=== PATIENT | male | born 1960 | race Caucasian/White ===

== ENCOUNTER → 2020-06-11 | Outpatient (CLI) | payer BC ==
--- NOTE | 2020-06-13 12:47 | P.ARTDOP ---
Arterial Doppler LOWER EXTREMITY ARTERIAL DOPPLER: DATE OF SERVICE: 06/11/2020 Reason for study: Calf claudication. Doppler waveforms: Multiphasic throughout on the left and at the femoral on the right. Atypical below. Poor digital waveforms. Digital waveforms on the left are good. Pulse volume recording: []. Pressure gradients: Above the low thigh on the right and below the knee. None on the left. Ankle-brachial indices: 0.46 on the right and greater than 1 on the left.. Toe brachial indices: 0.49 on the right, 0.79 on the left Impression: The left is normal. At least moderate right fem-pop disease. Vascular surgical consult recommended..
== END | disposition home or self-care (01) ==
LOC: RADUSWWP 11:58
PROVIDERS: ATTEND Family Medicine
DX: I73.9 Peripheral vascular disease, unspecified (principal)
CPT/HCPCS: 93923

== ENCOUNTER → 2020-07-18 | Day surgery (SDC) | payer BC ==
[2020-07-16 11:42] VITALS: BMI 25.6
[~2020-07-18] MED LIST: ALPRAZolam 0.25 MG TAB PO PRN; ASPIRIN 325 MG TAB PO STA; IOPAMIDOL-250 100ML BTL INTRAARTER ONE; IV FLUID CONTINUATION 900 ML IV ONE; LIDOCAINE 1% INJ 10MG/ML (20 ML MDV) SQ ONE; MIDAZOLAM 2 MG/2 ML VIAL IVP ONE; SODIUM CHLORIDE 0.9% 1,000 ML in EMPTY BAG 1 BAG IV ONE
[2020-07-18 12:17] VITALS: RESP 16; TEMP 97.6
[2020-07-18 12:25] LABS: Glucose,Whole Blood 116 mg/dL (75-99)
[2020-07-18 12:30] LABS: Basophils # (A) 0.1 k/uL (0-0.2); Basophils % (A) 1 %; Eosinophils # (A) 0.3 k/uL (0-0.7); Eosinophils % (A) 4 %; HCT 49.7 % (39.0-53.0); HGB 16.7 gm/dL (13.0-17.5); Lymphocytes # (A) 2.4 k/uL (1.0-4.8); Lymphocytes % (A) 32 %; MCH 31.2 pg (25.0-35.0); MCHC 33.7 g/dL (31.0-37.0); MCV 92.7 fL (80.0-100.0); Mean Platelet Volume 7.2; Monocytes # (A) 0.5 k/uL (0-1.0); Monocytes % (A) 6 %; Neutrophils # (A) 4.2 k/uL (1.3-7.7); Neutrophils % (A) 56 %; Platelet Count 202 k/uL (150-450); RBC 5.36 m/uL (4.30-5.90); RDW 13.3 % (11.5-15.5); WBC 7.5 k/uL (3.8-10.6)
[2020-07-18 12:41] LABS: African American GFR (CKD) >90 (>60 ml/min/1.73 sqM); Anion Gap 5 mmol/L; Blood Urea Nitrogen 16 mg/dL (9-20); Calcium 9.5 mg/dL (8.4-10.2); Carbon Dioxide 29 mmol/L (22-30); Chloride 104 mmol/L (98-107); Glucose 128 mg/dL (74-99); Non-African American GFR(CKD) >90 (>60 ml/min/1.73 sqM); Potassium 4.8 mmol/L (3.5-5.1); Sodium 138 mmol/L (137-145)
--- NOTE | 2020-07-18 13:45 | P.OP ---
Date of Procedure: 07/18/20 Description of Procedure: Preoperative diagnosis: Ivania 3 peripheral arterial disease right lower extremity Postoperative diagnosis: Same Procedure: [#1 ultrasound guided left common femoral artery access #2 aortogram with bilateral lower extremity runoffs #3 18 minutes moderate conscious sedation] Surgeon: Jaquelin Sotelo D.O. EBL: [Less than 10 mL] IV fluids: [See records] Urine output: [See records] Drains: [None] Complications: [None immediately apparent] Condition: [Stable to recovery] Operative indication and findings: [The patient is a 59-year-old male who in the past few months been having increasing issues with claudication of his right lower extremity not being able to walk as he had previously. He had arterial Dopplers revealing an RUDOLPH on the right of 0.49 therefore recommended he undergo imaging via a catheter directed angiogram risks and benefits were discussed. He seemingly understood and was willing to proceed.] Procedure in detail: []The patient was taken to the special suite and placed in supine position. The bilateral groins were prepped and draped in usual sterile fashion. A preprocedure timeout was performed, all parties are in agreement. The ultrasound utilized and the left common femoral artery was identified. The skin overlying was anesthetized 1% lidocaine plain. The common femoral artery was cannulated on first attempt and Seldinger technique was used to place a 5- Mohawk sheath. Catheters wires at least placed Omni Flush catheter in the abdo lucho aorta an angiogram was performed. The catheters and brought down the level of bifurcation and bilateral lower extremity runoffs were performed. Catheters and wires were removed. Sheath was removed and manual pressure was held until hemostasis was adequate. The patient was transferred back to recovery in stable condition having tolerated procedure well. Angiographic findings the aorta is normal in course and caliber. Patient appears to have a patent celiac artery with a visualized splenic artery. The SMA appears patent. The bilateral renals appear patent, does appear there is an accessory right renal artery. The lateral common iliacs are patent without evidence of significant disease. The external and internal iliacs are patent without evidence of significant disease. On the right the common and deep femoral arteries are patent without significant disease, the superficial femoral artery is patent to the level of the abductor canal with there is a large collateral and abrupt occlusion. There is reconstitution at the above-knee popliteal artery. There is a high takeoff of the anterior tibial artery along TP trunk. There are 3 vessels down the leg. On the left the common, deep and superficial femoral arteries are widely patent without evidence of significant disease. There is some calcific disease of the distal superficial femoral artery without any significant areas of stenosis. There is three-vessel runoff with a normal anterior tibial artery takeoff on the left lower extremity. Plan - Discharge Summary Discharge Rx Participant: No New Discharge Prescriptions: No Action metFORMIN HCL 1,000 mg PO BID Cinnamon Bark [Cinnamon] 500 mg PO DAILY Aspirin 324 mg PO ONETIME Discharge Medication List Cinnamon Bark [Cinnamon] 500 mg PO DAILY 07/16/20 [History] metFORMIN HCL 1,000 mg PO BID 07/16/20 [History] Aspirin 324 mg PO ONETIME 07/18/20 [History] Follow up Appointment(s)/Referral(s): Jaquelin Sotelo DO [STAFF PHYSICIAN] - 1 Week Activity/Diet/Wound Care/Special Instructions: Resume regular activities starting tomorrow. No heavy lifting. May shower. Discharge Disposition: HOME SELF-CARE
--- NOTE | 2020-07-18 17:11 | IR ---
Fluoroscopy HISTORY: Pain in right leg 1.9 minutes fluoroscopy time supplied to the referring clinician. 77 intraoperative C-arm images doc ument the procedure. See dictated report from vascular surgery.
[2020-07-18 17:14] VITALS: BP 132/63; PULSE 59
== END | disposition home or self-care (01) ==
LOC: CATHCVL 11:40
PROVIDERS: ATTEND Surgery
DX: E11.51 Type 2 diabetes mellitus with diabetic peripheral angiopathy without gangrene (principal); I70.211 Atherosclerosis of native arteries of extremities with intermittent claudication, right leg; F17.200 Nicotine dependence, unspecified, uncomplicated; Z79.84 Long term (current) use of oral hypoglycemic drugs; Z79.82 Long term (current) use of aspirin
CPT/HCPCS: 36200; 75625; 75716; 76937; 80048; 85025; C1769 ×3; C1894 ×2; J2250; J2001; Q9966

== ENCOUNTER 2020-08-01 11:48 | Day surgery (SDC) | payer BC ==
[2020-07-30 16:02] VITALS: BMI 25.4
[~2020-08-01 11:48] MED LIST changes: -IOPAMIDOL-250 100ML BTL INTRAARTER ONE; -IV FLUID CONTINUATION 900 ML IV ONE; -LIDOCAINE 1% INJ 10MG/ML (20 ML MDV) SQ ONE; -MIDAZOLAM 2 MG/2 ML VIAL IVP ONE
[2020-08-01 12:06] LABS: Glucose,Whole Blood 118 mg/dL (75-99)
[2020-08-01] MEDS ORDERED: SODIUM CHLORIDE 0.9% 1,000 ML IV ONE (13:15)
[2020-08-01 13:37] LABS: Glucose,Whole Blood 115 mg/dL (75-99)
[2020-08-01 14:15] LABS: African American GFR (CKD) >90 (>60 ml/min/1.73 sqM); Anion Gap 4 mmol/L; Blood Urea Nitrogen 16 mg/dL (9-20); Calcium 9.1 mg/dL (8.4-10.2); Carbon Dioxide 30 mmol/L (22-30); Chloride 103 mmol/L (98-107); Glucose 117 mg/dL (74-99); Non-African American GFR(CKD) >90 (>60 ml/min/1.73 sqM); Potassium 4.6 mmol/L (3.5-5.1); Sodium 137 mmol/L (137-145)
[2020-08-01] MEDS ORDERED: MIDAZOLAM 2 MG/2 ML VIAL IVP ONE (14:47)
[2020-08-01] MEDS ORDERED: fentaNYL (PF) 50 MCG/ML 2 ML AMP IV ONE (14:47)
[2020-08-01] MEDS ORDERED: LIDOCAINE 1% INJ 10MG/ML (20 ML MDV) SQ ONE (14:48)
[2020-08-01] MEDS ORDERED: HEPARIN SODIUM 1,000 UN/ML (10ML VL) IV ONE (14:51)
[2020-08-01 14:54] LABS: Basophils % (A) 0 %; Eosinophils # (A) 0.4 k/uL (0-0.7); Eosinophils % (A) 5 %; HCT 47.3 % (39.0-53.0); HGB 15.8 gm/dL (13.0-17.5); Lymphocytes # (A) 2.7 k/uL (1.0-4.8); Lymphocytes % (A) 31 %; MCHC 33.3 g/dL (31.0-37.0); MCV 90.1 fL (80.0-100.0); Mean Platelet Volume 7.3; Monocytes # (A) 0.5 k/uL (0-1.0); Monocytes % (A) 6 %; Neutrophils % (A) 57 %; Platelet Count 190 k/uL (150-450); RBC 5.26 m/uL (4.30-5.90); RDW 13.5 % (11.5-15.5); WBC 8.8 k/uL (3.8-10.6)
[2020-08-01] MEDS ORDERED: IOPAMIDOL-250 100ML BTL INTRAARTER ONE (15:34)
[2020-08-01] MEDS ORDERED: CLOPIDOGREL 75 MG TAB PO ONE (15:40)
--- NOTE | 2020-08-01 15:55 | P.OP ---
Date of Procedure: 08/01/20 Description of Procedure: Preoperative diagnosis: Right superficial femoral artery occlusive disease, [place] 3 peripheral arterial disease Postoperative diagnosis: Same Procedure: [#1 ultrasound guided left common femoral artery access #2 selective right lower extremity angiogram to popliteal 3. Superficial femoral artery atherectomy with Hawk M 4. Percutaneous transluminal balloon angioplasty 5 x 1 20, 6 x 120 drug-coated balloon] Surgeon: Jaquelin Sotelo D.O. EBL: [Less than 10 mL] IV fluids: [See records] Urine output: [None] Drains: [None] Complications: [None immediately apparent] Condition: [Stable to recovery] Operative indication and findings: [The patient is a 59-year-old male who has had new onset of pain in his right lower extremity. He previously underwent an angiogram revealing superficial femoral artery occlusion. He presents today for atherectomy and angioplasty. Risks and benefits were discussed receiving Lantus and was willing to proceed as such] Procedure in detail: [The patient was taken to the special suite and placed in supine position. The bilateral groins are prepped and draped in usual sterile fashion the ultrasound was utilized and the left common femoral artery was identified. Skin overlying was necessary for percent lidocaine plain and the needle was accessed. Seldinger technique was used and a 6-Burund[place] sheath was placed. Catheters and wires were utilized access the right iliac. Iliofemoral angiogram was performed. The glide advantage wire was placed down into the superficial femoral artery prior to the occlusion. The sheath was then replaced with a long 6-Burundian sheath. The wire was then utilized to cross the occlusion with a crossing catheter. A distal angiogram was performed in the above-knee popliteal artery with three-vessel runoff confirming the high vessel anterior tibial artery takeoff. A 6 spider was placed above the bifurcation and Hawk M was utilized to atherectomized the occlusion. Following that a 5 x 1 20 balloon was placed for sizing as well as angioplasty. Distally the vessel did appear more close to a size of the 6 therefore a 6 x 1 20 drug-coated balloon was placed and left in place for 3 minutes. The balloon was removed and an angiogram was performed revealing significant improvement. The crossing catheter was placed and the spider distal embolic protection device was removed. The final images taken and down leg there maintained 3 vessels to the ankle. The sheath was then removed over a wire. The wire was removed. The sheath was removed and pressure was held until hemostasis was adequate. Patient tolerated the procedure well.] Plan - Discharge Summary Discharge Rx Participant: No New Discharge Prescriptions: No Action metFORMIN HCL 1,000 mg PO BID Cinnamon Bark [Cinnamon] 500 mg PO DAILY Aspirin 325 mg PO ONETIME Discharge Medication List Cinnamon Bark [Cinnamon] 500 mg PO DAILY 07/16/20 [History] metFORMIN HCL 1,000 mg PO BID 07/16/20 [History] Aspirin 325 mg PO ONETIME 07/18/20 [History] Follow up Appointment(s)/Referral(s): Jaquelin Sotelo DO [STAFF PHYSICIAN] - 08/08/20 9:00 am () Patient Instructions/Handouts: Peripheral Vascular Angioplasty (DC) Discharge Disposition: HOME SELF-CARE
[2020-08-01] MEDS: SODIUM CHLORIDE 0.9% 1,000 ML in EMPTY BAG 1 BAG IV SCH (16:31)
[2020-08-01 17:01] LABS: Glucose,Whole Blood 98 mg/dL (75-99)
[2020-08-01] MEDS: INSULIN ASPART (NovoLOG) 100 UNIT/ML VIAL SQ SCH ×2 (18:01→20:28)
[2020-08-01 20:29] LABS: Glucose,Whole Blood 141 mg/dL (75-99)
--- NOTE | 2020-08-01 23:47 | CONS ---
CONSULTATION DATE OF SERVICE: 08/01/2020 REASON FOR CONSULTATION: Advice regarding diabetes mellitus and other medical issues, requested by Dr. Sotelo. HISTORY OF PRESENT ILLNESS: This 59-year-old gentleman with a past medical history of diabetes mellitus, hyperlipidemia, history of varicose veins, being followed by Dr. Cortez in the outpatient setting underwent selective right lower extremity angiogram and superficial femoral artery arthrectomy, a PTBA by Dr. Sotelo. The patient tolerated the procedure. Patient admitted for further evaluation and treatment. There is no history of fever, rigors. No history of headache, loss of consciousness or seizures. Blood sugars have been 115, 117 and 98. PAST MEDICAL HISTORY: Diabetes mellitus type 2, history of hyperlipidemia, history of varicose veins, peripheral vascular disease. MEDICATIONS: Metformin, cinnamon and aspirin. The doses are noted. ALLERGIES: None. FAMILY HISTORY: No history of heart disease or strokes in the family. SOCIAL HISTORY: Smoking on and off, vaping. Otherwise no history of alcohol intake. REVIEW OF SYSTEMS: ENT: No diminished hearing or diminished vision. CARDIOVASCULAR SYSTEM: No angina. RESPIRATORY SYSTEM: No cough or hemoptysis. GI: No nausea, vomiting, diarrhea. : No dysuria. NERVOUS SYSTEM: No numbness or weakness. ALLERGY/IMMUNOLOGY: No asthma or hayfever. MUSCULOSKELETAL: As mentioned earlier. HEMATOLOGY: No history of anemia. ENDOCRINE: History of diabetes mellitus. No hypothyroidism. CONSTITUTIONAL: As mentioned earlier. DERMATOLOGY: Negative. RHEUMATOLOGY: Negative. PSYCHIATRY: As mentioned earlier. PHYSICAL EXAMINATION: The patient is alert and oriented x3. Pulse 61, blood pressure 130/70, respiration 16, temperature normal, pulse ox 90% on room air. HEENT: Conjunctivae normal. NECK: No jugular venous distention. CARDIOVASCULAR: S1, S2 muffled. RESPIRATORY: Breath sounds diminished at the bases. A few scattered rhonchi and crackles. ABDOMEN: Soft, nontender. No mass palpable. LEGS: Status post SFA atherectomy on the right. NERVOUS SYSTEM: Higher function as mentioned earlier. Moves all 4 limbs. No focal motor or sensory deficits. LYMPHATICS: No lymphadenopathy of the neck, axillae or groin. SKIN: No ulcer, rash or bleeding. JOINTS: No active deforming arthropathy. LABS: CBC within normal limits. Glucose 117. ASSESSMENT: 1. Peripheral vascular disease, status post superficial femoral arthrectomy and as well as PTBA on the right. 2. Diabetes mellitus type 2. 3. Hyperlipidemia. 4. History of varicose veins. 5. History of nicotine dependence. 6. FULL CODE. RECOMMENDATIONS AND DISCUSSION: This 59-year-old gentleman who presented with multiple medical problems, we will monitor the patient closely, continue the current medications, continue symptomatic treatment. Will initiate home medications and antiplatelet agents. Monitor blood sugars closely. Otherwise, the patient may be asked to follow up with primary physician in the outpatient setting. Thank you Dr. Sotelo for letting us participate in the care of this patient. MMODL / IJN: [id number] /
[2020-08-02 06:29] LABS: Glucose,Whole Blood 138 mg/dL (75-99)
[2020-08-02] MEDS: SODIUM CHLORIDE 0.9% 1,000 ML in EMPTY BAG 1 BAG IV SCH (06:32)
[2020-08-02] MEDS: INSULIN ASPART (NovoLOG) 100 UNIT/ML VIAL SQ SCH (06:33)
--- NOTE | 2020-08-02 08:37 | P.DS ---
Providers Date of admission: 08/01/2020 Expected date of discharge: 08/02/20 Attending physician: Jaquelin Sotelo DO Consults: 08/01/20 15:57 Consult Physician Routine Consulting Provider: Eunice Cortez Consult Reason/Comments: DM, med management Do you want consulting provider notified?: Yes 08/01/20 17:07 Consult Physician Routine Consulting Provider: Analia Hill Consult Reason/Comments: Medical management, DM Do you want consulting provider notified?: Yes Primary care physician: Eunice Cortez [place] [facility] Course: A 51-year-old male patient with Dr. Sotelo who came in yesterday and underwent a scheduled outpatient angiogram and superficial femoral artery arthrectomy with balloon angioplasty superficial femoral artery occlusive disease, [place] 3 peripheral arterial disease. He is status postop day #1. He is without any current complaints. He denies any bleeding from the access site. He is able to move bilateral lower extremities. He had no acute changes through the night. He denies any shortness of breath, chest pain, abdominal pain, fevers or chills. He tolerated a regular diet this morning. He is voiding without difficulty. Assessment: Exam: General appearance: The patient is alert, oriented, in no acute distress. HET: Head is normocephalic and atraumatic. Neck: Supple without lymphadenopathy. Trachea midline. Heart: S1 S2. Regular rate and rhythm. Lungs: No crackles or wheezes are heard. Abdomen: Soft, nontender, nondistended. Extremities: Normal skin color and turgor. No cyanosis, rash, ulceration, clubbing, or edema. Palpable bilateral femoral pulses, palpable bilateral dorsalis pedis pulses. Bilateral lower extremities warm to touch with good capillary refill. Patient is able to move bilateral lower extremities without any difficulty or pain. Left groin access site without any drainage. No redness, hematoma, or bruising noted. Neurological: No focal deficits. Strength and sensation are grossly intact. Assessment: 1. Postop day #1 for a right lower extremity angiogram with a superficial femoral artery atherectomy with balloon angioplasty 2. Right superficial femoral artery occlusive disease 3. Ivania 3 peripheral arterial disease The above dictated assessment and findings were discussed with Dr. Sotelo. The impression and plan of care have been directed as dictated. Procedures: Right lower extremity angiogram Superficial femoral artery atherectomy with balloon angioplasty Patient Condition at Discharge: Good Plan - Discharge Summary Discharge Rx Participant: No New Discharge Prescriptions: New Atorvastatin [Lipitor] 40 mg PO HS 90 Days #90 tab Clopidogrel [Plavix] 75 mg PO DAILY 90 Days #90 tab Continue metFORMIN HCL 1,000 mg PO BID Cinnamon Bark [Cinnamon] 500 mg PO DAILY Aspirin 325 mg PO ONETIME Discharge Medication List Cinnamon Bark [Cinnamon] 500 mg PO DAILY 07/16/20 [History] metFORMIN HCL 1,000 mg PO BID 07/16/20 [History] Aspirin 325 mg PO ONETIME 07/18/20 [History] Atorvastatin [Lipitor] 40 mg PO HS 90 Days #90 tab 08/02/20 [Rx] Clopidogrel [Plavix] 75 mg PO DAILY 90 Days #90 tab 08/02/20 [Rx] Follow up Appointment(s)/Referral(s): Jaquelin Sotelo DO [STAFF PHYSICIAN] - 08/08/20 9:00 am () Patient Instructions/Handouts: Peripheral Vascular Angioplasty (DC) Activity/Diet/Wound Care/Special Instructions: No heavy lifting or strenuous activity until after follow-up with Dr. Sotelo. May shower however no tub bathing. Patient will be starting on Plavix and a atorvastatin. Patient directed on use of medication. Large left groin for signs of infection, including redness, bleeding, or drainage. Call office with any of the above symptoms as well as fever greater than 100.4. Discharge Disposition: HOME SELF-CARE
[2020-08-02] MEDS ORDERED: CLOPIDOGREL 75 MG TAB PO SCH (09:00)
[2020-08-02] MEDS ORDERED: ATORVASTATIN 40 MG TAB PO SCH (09:00)
[2020-08-02 09:14] VITALS: BP 142/73; PULSE 63; RESP 16; TEMP 98.3
--- NOTE | 2020-08-02 09:23 | IR ---
Fluoroscopy HISTORY: Peripheral vascular occlusive disease 9.2 minutes fluoroscopy time supplied to the referring clinician. 314 intraoperative C-arm images do cument the procedure. See dictated report from vascular surgery.
--- NOTE | 2020-08-02 11:11 | P.PN ---
Subjective Progress Note Date: 08/02/20 This is a 59-year-old male who was recently admitted under Dr. Sotelo and underwent right lower extremity angiogram and superficial femoral artery arthrectomy with balloon angioplasty and is being closely monitored. Medical consultation regarding diabetes mellitus and other medical issues. Following closely along with vascular surgery. Patient was maintained on sliding scale and home medications have been resumed. Blood sugars well controlled and not requiring insulin. Patient will continue with current medication regimen in the outpatient setting. Currently no reports of chest pain, shortness of breath, or palpitations. No active bleeding noted. Patient is scheduled to be discharged this morning and is anxious about going home. Patient has a scheduled follow-up appointment with Dr. Sotelo next week. Patient will continue on his Plavix. No nausea or vomiting reported and patient has tolerated diet. Objective - Vital Signs Vital signs: Vital Signs Temp 98.3 F 08/02/20 08:34 Pulse 63 08/02/20 09:00 Resp 16 08/02/20 09:00 BP 142/73 08/02/20 08:34 Pulse Ox 98 08/02/20 08:34 Intake & Output 08/01/20 08/02/20 08/02/20 18:59 06:59 18:59 Intake Total 150 240 300 Balance 150 240 300 Weight 90 kg Intake: IV 150 Oral 240 300 Other: Voiding Method Toilet Toilet # Voids 2 2 - Exam Gen: This is a 59-year-old male awake, alert and oriented 3, well-developed, well-nourished. Temp is 98.3F, pulse is 63, respirations are 16, blood pressure is 142/73, oxygen saturation is 98% on room air. HEENT: Head is atraumatic, normocephalic. Pupils equal, round. Sclerae is anicteric. NECK: Supple. No JVD. No lymphadenopathy. No thyromegaly. LUNGS: Breath sounds diminished at the bases with no wheezing or rhonchi noted. No intercostal retractions. HEART: S1, S2 muffled ABDOMEN: Soft. Bowel sounds are present. No masses. No tenderness. EXTREMITIES: No pedal edema. No calf tenderness. Status post SFA atherectomy on the right, no active bleeding noted NEUROLOGICAL: Patient is awake, alert and oriented x3. Cranial nerves 2 through 12 are grossly intact. - Labs CBC & Chem 7: 08/01/20 14:30 08/01/20 13:47 Labs: Abnormal Lab Results - Last 24 Hours (Table) 08/01/20 08/01/20 08/01/20 Range/Units 12:05 13:27 13:47 Glucose 117 H (74-99) mg/dL POC Glucose (mg/dL) 118 H 115 H (75-99) mg/dL 08/01/20 08/02/20 Range/Units 20:28 06:28 Glucose (74-99) mg/dL POC Glucose (mg/dL) 141 H 138 H (75-99) mg/dL Assessment and Plan Assessment: Peripheral vascular disease, status post superficial femoral arthrectomy as well as PTBA on the right Diabetes mellitus type 2 Hyperlipidemia History of varicose veins History of nicotine dependence Full code Recommendations and discussion: Recommend to continue with current medications, management, and symptomatic treatment. Continue with home medications and patient will continue on Plavix. Patient instructed to continue monitoring blood sugars and keep a diary for primary care follow-up. Patient has a scheduled appointment with Dr. Sotelo next week for follow-up and patient is being discharged today. Will continue to follow along during hospitalization.
== END 2020-08-02 10:30 | disposition home or self-care (01) ==
LOC: CATHCVL 11:48 → 1SOBS 15:42 → CATHCVL 08-02 10:30
PROVIDERS: ATTEND Surgery
DX: E11.51 Type 2 diabetes mellitus with diabetic peripheral angiopathy without gangrene (principal); I70.211 Atherosclerosis of native arteries of extremities with intermittent claudication, right leg; F17.200 Nicotine dependence, unspecified, uncomplicated; E78.5 Hyperlipidemia, unspecified; I83.90 Asymptomatic varicose veins of unspecified lower extremity; Z79.84 Long term (current) use of oral hypoglycemic drugs; Z79.82 Long term (current) use of aspirin
CPT/HCPCS: 37225; 80048; 85025; 83036; C1894 ×2; C1769 ×3; C1887; C1725; C1714; C1884; C2623; J2250; J2001; J3010; J1644; Q9966

== ENCOUNTER → 2020-12-03 | Outpatient (CLI) | payer BC ==
--- NOTE | 2020-12-03 13:49 | US ---
EXAMINATION TYPE: US carotid duplex BILAT DATE OF EXAM: 12/03/2020 COMPARISON: NONE CLINICAL HISTORY: 60-year-old male F17.210 Nicotine dependence, cigarettes, uncomplicated. No HTN. TECHNIQUE: Carotid duplex ultrasound examination. Indirect Doppler criteria was utilized. FINDINGS: EXAM MEASUREMENTS: RIGHT: Peak Systolic Velocity (PSV) cm/sec ----- Right CCA: 102.6 ----- Right ICA: 87.8 ----- Right ECA: 172.6 ICA/CCA ratio: 0.9 RIGHT: End Diastole cm/sec ----- Right CCA: 18.3 ----- Right ICA: 17.5 ----- Right ECA: 32.7 LEFT: Peak Systolic Velocity (PSV) cm/sec ----- Left CCA: 93.4 ----- Left ICA: 96.4 ----- Left ECA: 155.4 ICA/CCA ratio: 1.0 LEFT: End Diastole cm/sec ----- Left CCA: 19.3 ----- Left ICA: 17.1 ----- Left ECA: 27.4 VERTEBRALS (direction of flow): Right Vertebral: Antegrade Left Vertebral: Antegrade Rhythm: Normal Sap Bods Developer notes: Bilateral wall thickening. Bilateral elevated ECA velocities. No plaque visualiz ed. IMPRESSION: 1. No hemodynamically significant internal carotid artery stenosis on either side. 2. Measurements suggest mild atherosclerotic narrowing within the bilateral ECAs. Criteria for Assigning % of Stenosis / Diameter reduction (Estimation based on the indirect measurements of the internal carotid artery velocities (ICA PSV). 1. Normal (no stenosis)=ICA PSV < 125 cm/s: ratio < 2.0: ICA EDV<40 cm/s. 2. Less than 50% stenosis=ICA PSV < 125 cm/s: ratio < 2.0: ICA EDV<40 cm/s. 3. 50 to 69% stenosis=ICA PSV of 125 to 230 cm/s: ration 2.0 ? 4.0: ICA EDV 40-100 cm/s. 4. Greater than 70% stenosis to near occlusion= ICA PSV > 230 cm/s: ratio > 4.0: ICA EDV > 100 cm/s. 5. Near occlusion= ICA PSV velocities may be low or undetectable: variable ratio and ICA EDV. 6. Total occlusion=unable to detect flow.
== END | disposition home or self-care (01) ==
LOC: RADUSWWP 12:31
PROVIDERS: ATTEND Family Medicine
DX: I70.211 Atherosclerosis of native arteries of extremities with intermittent claudication, right leg (principal); F17.210 Nicotine dependence, cigarettes, uncomplicated; Z71.6 Tobacco abuse counseling
CPT/HCPCS: 93880

== ENCOUNTER 2022-08-21 07:05 | Day surgery (SDC) | payer BC ==
[2022-08-19 11:12] VITALS: BMI 25.4
[~2022-08-21 07:05] MED LIST changes: -ALPRAZolam 0.25 MG TAB PO PRN; -ASPIRIN 325 MG TAB PO STA; +LACTATED RINGERS 1,000 ML IV SCH; -SODIUM CHLORIDE 0.9% 1,000 ML in EMPTY BAG 1 BAG IV ONE
[2022-08-21 07:20] VITALS: TEMP 97.1
[2022-08-21 07:38] LABS: Glucose,Whole Blood 152 mg/dL (70-110)
--- NOTE | 2022-08-21 08:07 | P.GSHP ---
History of Present Illness H&P Date: 08/21/22 Chief Complaint: Screening colonoscopy This a 7-year-old male presents today for screening colonoscopy. Patient denies a significant GI complaints. Past Medical History Past Medical History: Diabetes Mellitus, Hyperlipidemia Additional Past Medical History / Comment(s): Varicose veins on feet. History of Any Multi-Drug Resistant Organisms: None Reported Past Surgical History: No Surgical Hx Reported Additional Past Surgical History / Comment(s): Aortogram, athrectomy balloon right SFA by Dr Sotelo. Past Anesthesia/Blood Transfusion Reactions: No Reported Reaction Past Psychological History: No Psychological Hx Reported Smoking Status: Current every day smoker, Vaper Past Alcohol Use History: None Reported Additional Past Alcohol Use History / Comment(s): Smoker on/off since he was in his early 20's, quit for a while and was vaping, then went back to smoking, currently smokes 1/2 ppd. Past Drug Use History: None Reported - Past Family History Mother Family Medical History: Cancer Additional Family Medical History / Comment(s): Bladder cancer. Brother(s) Family Medical History: Cancer Additional Family Medical History / Comment(s): Bladder cancer. Medications and Allergies Home Medications Medication Instructions Recorded Confirmed Type metFORMIN HCL [Glucophage] 1,000 mg PO BID 07/16/20 08/19/22 History Aspirin [Adult Low Dose Aspirin EC] 81 mg PO DAILY 08/19/22 08/19/22 History Atorvastatin [Lipitor] 40 mg PO DAILY 08/19/22 08/19/22 History sitaGLIPtin [Januvia] 100 mg PO DAILY 08/19/22 08/19/22 History Allergies Allergy/AdvReac Type Severity Reaction Status Date / Time No Known Allergies Allergy Verified 08/21/22 07:16 Surgical - Exam Vital Signs Temp Pulse Resp BP Pulse Ox 97.1 F L 80 18 161/76 97 08/21/22 07:19 08/21/22 07:19 08/21/22 07:19 08/21/22 07:19 08/21/22 07:19 - General well developed, well nourished, no distress - Eyes PERRL - ENT normal pinna - Neck no masses - Respiratory normal expansion - Cardiovascular Rhythm: regular - Abdomen Abdomen: soft, non tender Results - Labs Abnormal Lab Results - Last 24 Hours (Table) 08/21/22 Range/Units 07:33 POC Glucose (mg/dL) 152 H (70-110) mg/dL Assessment and Plan Plan: We'll perform screening colonoscopy
[2022-08-21] MEDS ORDERED: PROPOFOL 10 MG/ML 20 ML VIAL IV ONE (08:08)
--- NOTE | 2022-08-21 08:27 | P.OP ---
Date of Procedure: 08/21/22 Preoperative Diagnosis: Screening colonoscopy Postoperative Diagnosis: Right colon polyp Procedure(s) Performed: Colonoscopy Anesthesia: MAC Surgeon: Lanre Naranjo Pathology: other (Right colon polyp) Condition: stable Disposition: PACU Description of Procedure: The patient's placed on the endoscopy table in the lateral position. He received IV sedation. Digital rectal exam performed. This revealed no ebonized. The flexible colonoscope was then placed patient anus and passed throughout the entire colon. The ileocecal valve was visualized. The cecum appeared normal. The scope was then withdrawn. And then the ascending colon there was a large polyps seen. Polyp was sessile. Polyp was removed with the snare. Scope was withdrawn. The remainder of the transverse colon descending colon sigmoid colon and rectum appeared normal. The scope was then withdrawn for patient.
[2022-08-21 08:29] VITALS: RESP 16
[2022-08-21 08:42] VITALS: BP 113/63; PULSE 76
== END 2022-08-21 08:57 | disposition home or self-care (01) ==
LOC: ORWHC2ENDO 07:05
PROVIDERS: ATTEND Surgery
DX: Z12.11 Encounter for screening for malignant neoplasm of colon (principal); D12.2 Benign neoplasm of ascending colon; E11.9 Type 2 diabetes mellitus without complications; E78.5 Hyperlipidemia, unspecified; F17.200 Nicotine dependence, unspecified, uncomplicated; Z79.82 Long term (current) use of aspirin; Z79.84 Long term (current) use of oral hypoglycemic drugs
CPT/HCPCS: 88305; 45385; J2704

== ENCOUNTER 2025-01-09 11:37 | Day surgery (SDC) | payer BC ==
[~2025-01-09 11:37] MED LIST changes: -LACTATED RINGERS 1,000 ML IV SCH; +LIDOCAINE 1% (10MG/ML) FOR IV START INTRADERMA PRN
[2025-01-09 12:19] VITALS: TEMP 96.7
[2025-01-09 12:23] LABS: Glucose,Whole Blood 117 mg/dL (70-110)
[2025-01-09] MEDS: LACTATED RINGERS 1,000 ML IV SCH (12:23)
[2025-01-09] MEDS: IV FLUID CONTINUATION 1,000 ML IV ONE ×2 (12:24→14:03)
[2025-01-09] MEDS ORDERED: PROPOFOL 10 MG/ML 20 ML VIAL IV ONE (14:04)
--- NOTE | 2025-01-09 14:15 | P.GSHP ---
History of Present Illness H&P Date: 01/09/25 Chief Complaint: History of colon polyps Is a 64-year-old male presents today for colonoscopy. Patient's previous history of colon polyps. His last colonoscopy was 3 years ago. Past Medical History Past Medical History: Diabetes Mellitus, Hyperlipidemia Additional Past Medical History / Comment(s): Varicose veins on feet. History of Any Multi-Drug Resistant Organisms: None Reported Past Surgical History: No Surgical Hx Reported Additional Past Surgical History / Comment(s): Aortogram, athrectomy balloon right SFA by Dr Sotelo.colonoscopy Past Anesthesia/Blood Transfusion Reactions: No Reported Reaction Smoking Status: Current every day smoker - Past Family History Mother Family Medical History: Cancer Additional Family Medical History / Comment(s): Bladder cancer. Brother(s) Family Medical History: Cancer Additional Family Medical History / Comment(s): Bladder cancer. Medications and Allergies Home Medications Medication Instructions Recorded Confirmed Type metFORMIN HCL [Glucophage] 1,000 mg PO BID 07/16/20 01/05/25 History Aspirin [Adult Low Dose Aspirin EC] 81 mg PO DAILY 08/19/22 01/06/25 History Atorvastatin [Lipitor] 20 mg PO DAILY 08/19/22 01/05/25 History Glimepiride 2 mg PO DAILY 01/05/25 01/05/25 History Pioglitazone [Actos] 30 mg PO DAILY 01/05/25 01/05/25 History Allergies Allergy/AdvReac Type Severity Reaction Status Date / Time No Known Allergies Allergy Verified 01/09/25 12:11 Surgical - Exam Vital Signs Temp Pulse Resp BP Pulse Ox 96.7 F L 65 16 147/69 99 01/09/25 12:15 01/09/25 12:15 01/09/25 12:15 01/09/25 12:15 01/09/25 12:15 - General well developed, well nourished, no distress - Eyes PERRL - ENT normal pinna - Neck no masses - Cardiovascular Rhythm: regular - Abdomen Abdomen: soft, non tender Results - Labs Abnormal Lab Results - Last 24 Hours (Table) 01/09/25 Range/Units 12:22 POC Glucose (mg/dL) 117 H (70-110) mg/dL Assessment and Plan Assessment: History of colon polyps. Will perform colonoscopy.
--- NOTE | 2025-01-09 14:29 | P.OP ---
Date of Procedure: 01/09/25 Preoperative Diagnosis: History of colon polyps Postoperative Diagnosis: Normal colonoscopy Procedure(s) Performed: Colonoscopy Anesthesia: MAC Surgeon: Lanre Naranjo Pathology: none sent Condition: stable Disposition: PACU Description of Procedure: PROCEDURE: The patient was placed on the endoscopy table in the lateral position. Digital rectal examination was performed which revealed no abnormalities. The prostate was symmetrical without nodules. Flexible colonoscope was then placed in the patient's anus and passed throughout the entire colon. The ileocecal valve was visualized. The cecum, ascending, transverse, descending and sigmoid colon were normal. The rectum was normal as well. There were no masses, polyps or diverticula noted in the entire colon. SUMMARY OF FINDINGS: Normal colonoscopy.
[2025-01-09 14:35] VITALS: RESP 14
[2025-01-09 14:52] VITALS: BP 121/73; PULSE 58
== END 2025-01-09 15:10 | disposition home or self-care (01) ==
LOC: ORWHC2ENDO 11:37
PROVIDERS: ATTEND Surgery
DX: Z12.11 Encounter for screening for malignant neoplasm of colon (principal); Z86.0100 Personal history of colon polyps, unspecified; E11.9 Type 2 diabetes mellitus without complications; E78.5 Hyperlipidemia, unspecified; F17.200 Nicotine dependence, unspecified, uncomplicated; Z79.84 Long term (current) use of oral hypoglycemic drugs; Z79.82 Long term (current) use of aspirin
CPT/HCPCS: 45378; J2704